=== PATIENT | male | born 1975 | race Caucasian/White ===

== ENCOUNTER 2019-02-04 01:07 | Inpatient (IN) | payer OTHER, MEDICAID ==
[~2019-02-04] VITALS: Ht 165.1 cm; Wt 44.9 kg
[~2019-02-04 01:07] MED LIST: ACET325S31 RC; ALBU3SOL83 IH; ATI2I IVP; CARB100C26 GT; COL100L GT; Cream Base TP; FAMO20TA12 GT; HEPA500056 SUBQ; METO5SOL19 GT; Ondansetron IVP; PIPE1SOL IV; SACC250C1 GT; SYN.075 GT; [UNRECOGNIZED DRUG - CODE] GT; [UNRECOGNIZED DRUG - CODE] GT; [UNRECOGNIZED DRUG - CODE] IVP
[2019-02-04 01:15] VITALS: BP 125/82
--- NOTE | 2019-02-04 01:50 | NUR ---
PTBIBA ALS TO ER BED 3
--- NOTE | 2019-02-04 02:46 | NUR ---
43 Y/O MALE PT BIBA TO ED FOR EVALUATION OF COUGH. PER EMS; PT FROM [facility], STAFFS FOUND PT COUGH, O2 SAT ROOM AIR AT HIGH 80. WHEN EMS ARRIVED, O2 ROOM AIR 93%, PLACED ON O2 2L/M VIA NC O2 SAT 97%. PATIENT IS NONVERBAL AND GCS IS 10. CRACKLES HEARD ON LUNGS BILATERALLY. RR 30; SPO2 IS 96 ON 2L DECUB ULCER TO LT BUTTOCK.ERMD MADE AWARE OF STATUS. PLACED ON MONITOR AND SIDERAILSX2. PMH;PMR, CEREBRAL PALSY, SPASTIC QUAD, SEVERE SCOLIOSIS, GROWTH FAILURE, HYPOTHYROIDISM, CHRONIC CONSTIPATION, ANEMIA, DECUB ULCER TO LT BUTTOCK
--- NOTE | 2019-02-04 03:10 | NUR ---
EKG PERFORMED AT BEDSIDE
[2019-02-04 03:24] LABS: BASOPHILS % (AUTO) 0.2 % (0.0-2.0); EOSINOPHILS % (AUTO) 0.5 % (0.0-4.0); HEMATOCRIT 43.3 % (36-52); HEMOGLOBIN 14.4 g/dL (12.0-18.0); LYMPHOCYTES # (AUTO) 0.6 K/uL (2.0-11.5); LYMPHOCYTES % (AUTO) 11.3 % (20.5-51.1); MEAN CORPUSCULAR HEMOGLOBIN 32 pg (27-31); MEAN CORPUSCULAR HGB CONC 33 g/dL (33-37); MEAN CORPUSCULAR VOLUME 97.3 fL (80-94); MONOCYTES # (AUTO) 0.4 K/uL (0.8-1.0); MONOCYTES % (AUTO) 7.2 % (1.7-9.3); NEUTROPHILS # (AUTO) 4.4 K/uL (1.8-7.7); NEUTROPHILS % (AUTO) 80.8 % (42.2-75.2); PLATELET COUNT (AUTO) 166 K/uL (140-450); RED BLOOD CELL COUNT(AUTO) 4.45 MIL/uL (4.20-6.10); RED CELL DISTRIBUTION WIDTH 12.7 % (11.6-13.7); WHITE BLOOD COUNT (AUTO) 5.4 K/uL (4.8-10.8)
[2019-02-04 03:33] LABS: ANION GAP 10.6 (8-16); CARBON DIOXIDE 29.3 mmol/L (21-32); CREATININE 0.5 mg/dL (0.7-1.3); POTASSIUM 3.9 mmol/L (3.5-5.1)
[2019-02-04 03:39] LABS: ALBUMIN 3.4 g/dL (3.4-5.0); TOTAL BILIRUBIN 0.4 mg/dL (0.0-1.0)
[2019-02-04] MEDS ORDERED: PIPERACILLIN/TAZOBACTAM 3.375 GM in DEXTROSE 5% 50 ML IV ONE (03:50)
[2019-02-04] MEDS ORDERED: VANCOMYCIN 1,000 MG in DEXTROSE 5% 250 ML IV ONE (03:50)
[2019-02-04] MEDS ORDERED: NACL 0.9% 1,000 ML IV ONE ×2 (03:55→04:10)
[2019-02-04] MEDS ORDERED: PIPERACILLIN/TAZOBACTAM 3.375 GM VIAL IV ONE (04:21)
[2019-02-04] MEDS ORDERED: VANCOMYCIN 1,000 MG VIAL ONE (04:24)
[2019-02-04] MEDS ORDERED: ACETAMINOPHEN 650 MG/20.3 ML UDC PO ONE ×2 (05:10→05:50)
[2019-02-04] MEDS ORDERED: ACETAMINOPHEN 325 MG TAB PO ONE (05:55)
[2019-02-04] MEDS ORDERED: ACETAMINOPHEN 650 MG SUPP RC ONE (06:10)
[2019-02-04] MEDS ORDERED: diphenhydrAMINE 50 MG/ML VIAL ONE (06:22)
[2019-02-04] MEDS ORDERED: diphenhydrAMINE 50 MG/ML VIAL IVP ONE (06:25)
--- NOTE | 2019-02-04 07:27 | NUR ---
Pt report given to ALVINO CROOKS. Transfer of care at this time.
--- NOTE | 2019-02-04 07:28 | NUR ---
RECEIVED REPORT FROM ALVINO ECHEVERRIA.
[2019-02-04] MEDS ORDERED: metroNIDAZOLE 500 MG/NS PREMIX 100 ML IV ONE (07:30)
[2019-02-04] MEDS ORDERED: CLINDAMYCIN 600 MG in DEXTROSE 5% 50 ML IV ONE (07:30)
[2019-02-04] MEDS ORDERED: CLINDAMYCIN 600 MG/4 ML VIAL ONE (07:40)
[2019-02-04] MEDS ORDERED: DOCUSATE SODIUM 100 MG GELCAP PO PRN (08:20)
[2019-02-04] MEDS ORDERED: ONDANSETRON 4 MG/2 ML VIAL IM/IVP PRN (08:20)
[2019-02-04] MEDS ORDERED: ACETAMINOPHEN 325 MG TAB PO PRN (08:20)
[2019-02-04] MEDS ORDERED: HYDROcodone/APAP 7.5/325 MG 1 TAB PO PRN (08:20)
[2019-02-04] MEDS ORDERED: ALBUTEROL SULFATE/IPRATROPIU 3 ML SOL IH PRN (08:20)
--- NOTE | 2019-02-04 08:26 | NUR ---
LACTIC BLOOD SAMPLE WALKED TO LAB.
[2019-02-04] MEDS ORDERED: ALBUTEROL SULFATE/IPRATROPIU 3 ML SOL IH SCH ×2 (08:30→13:00)
--- NOTE | 2019-02-04 08:44 | NUR ---
NO ULCERS SEEN ON BUTTOCKS
[2019-02-04] MEDS ORDERED: PANTOPRAZOLE 40 MG TABEC PO SCH (09:00)
--- NOTE | 2019-02-04 09:50 | NUR ---
Patient will be admitted to care of DR. DUNN. Admited to TELE. Will go to room 122B. Belongings list completed. Report to POOJA DE OLIVEIRA.
--- NOTE | 2019-02-04 10:00 | NUR ---
CALLED KIT (PERSON TO NOTIFY) AND ASKED FOR LIST OF HOME MEDS. KIT SAYS SHE WILL CONTACT THE [facility] AND ASK SOMEONE TO PROVIDE LIST TO [facility].
--- NOTE | 2019-02-04 10:02 | NUR ---
RECEIVED REPORT AT BEDSIDE FROM FACING GRINDER, DAKSHA, FOR CONTINUITY OF CARE. PATIENT OPENS EYES TO NAME, NONVERBAL, UNABLE TO MAKE NEEDS KNOWN OR FOLLOW COMMANDS. PATIENT SKIN IS WARM, DRY, INTACT. HE HAS PERIPHERAL IV SITE TO R. HAND 20G, ASYMPTOMATIC AND PATENT. PATIENT IS ON NASAL CANNULA 4LPM. PATEL CATHETER IN PLACE. HOB IS SEMI DAVISON, BED LOCKED IN LOW POSITION. NO SIGNS OF DISTRESS AT THIS TIME. WILL CONTINUE TO MONITOR
[2019-02-04] MEDS: NACL 0.9% 1,000 ML IV SCH ×2 (10:26→17:38)
--- NOTE | 2019-02-04 11:48 | NUR ---
SPOKE WITH DR. MICHAELS REGARDING PATIENT'S DIET, STATES THAT SHE WILL BE TRANSFERRING CARE TO DR. TIFFANY SORIA.
[2019-02-04 12:00] VITALS: BP_SYST 100; BP_SYST 90; BP_DIAS 63; BP_DIAS 70
[2019-02-04] MEDS: PIPERACILLIN/TAZOBACTAM 3.375 GM in DEXTROSE 5% 50 ML IV SCH ×2 (12:20→21:53)
--- NOTE | 2019-02-04 12:47 | NUR ---
ZOSYN RUNNING, NO SIGNS OF REACTION NOTED. WILL CONTINUE TO MONITOR
[2019-02-04] MEDS ORDERED: DOCUSATE 100 MG/10 ML UDC GT PRN (14:25)
[2019-02-04] MEDS ORDERED: ACETAMINOPHEN 325 MG SUPP RC PRN (14:25)
[2019-02-04] MEDS ORDERED: ONDANSETRON 4 MG IVP PRN (14:25)
[2019-02-04] MEDS ORDERED: LORazepam 2 MG/ML VIAL IVP PRN (14:25)
[2019-02-04] MEDS ORDERED: BASE TP PRN (14:25)
--- NOTE | 2019-02-04 14:27 | NUR ---
DR. AVILES IN TO SEE AND EXAMINE PATIENT, UPDATED ON PATIENT'S CONDITION. STATES TO D/C LEVI AND NE.
[2019-02-04] MEDS ORDERED: MORPHINE SULFATE 4 MG/ML SYR IVP PRN (14:30)
[2019-02-04] MEDS ORDERED: MORPHINE SULFATE 2 MG/ML SYR IVP PRN (14:30)
[2019-02-04] MEDS ORDERED: ONDANSETRON 4 MG/2 ML VIAL IVP PRN (14:50)
[2019-02-04 14:51] LABS: PROTHROMBIN TIME 9.8 secs (10.8-13.4)
[2019-02-04 16:00] VITALS: BP 98/69
[2019-02-04 16:03] LABS: FREE T4 (FREE THYROXINE) 0.77 ng/dL (0.76-1.46); MAGNESIUM 1.8 mg/dL (1.8-2.4); PHOSPHORUS 2.9 mg/dL (2.5-4.9); THYROID STIMULATING HORMONE 1.37 uIU/mL (0.34-3.74)
--- NOTE | 2019-02-04 16:15 | NUR ---
PATIENT'S VITALS ARE STABLE, FLACC 0. NO SIGNS OF DISTRESS NOTED.
--- NOTE | 2019-02-04 16:18 | NUR ---
CALLED DR. Kraig SORIA, STATES OK TO CHANGE ORDER FOR CARBAMAZEPINE 500MG GT BID TO 250MG SUSPENSION PO QID.
[2019-02-04] MEDS: METOCLOPRAMIDE 10 MG/10 ML SYRP UDC GT SCH (16:31)
[2019-02-04] MEDS ORDERED: NON-FORMULARY ITEM (Metoclopramide HCl 5 MG) GT SCH (17:00)
--- NOTE | 2019-02-04 17:15 | NUR ---
EMPTIED PATEL, PATIENT HAD 1350 URINE OUTPUT.
[2019-02-04] MEDS: ALBUTEROL SULFATE/IPRATROPIU 3 ML SOL IH SCH ×2 (18:58→22:45)
--- NOTE | 2019-02-04 19:18 | NUR ---
RECEIVED REPORT FROM POOJA DE OLIVEIRA DAYSHIFT NURSE AT BEDSIDE FOR CONTINUITY OF CARE, PT IN STABLE CONDITION.
[2019-02-04 20:00] VITALS: BP 118/82
--- NOTE | 2019-02-04 20:00 | NUR ---
PT IN LOW BED WITH ALL FALLS PRECAUTIONS IN PLACE. HE IS AOX1 WITH NO S/S OF PAIN OR DISTRESS NOTED 02 AT 2 LITERS VIA N/C. PT HAS A PATEL CATHETER INTACT AND DRAINING LIGHT YELLOW URINE. HE ALSO HAS A GT WHICH IS POSITIVE FOR PLACEMENT AND NO RESIDUAL NOTED. V/S FOLLOWS T 97.9 P 103 R 18 B/P 118/82 02 98%WITH 2 LITERS VIA N/C. POSITIVE BOWEL SOUNDS AND LUNG SOUNDS DIMINISHED. IV SITE 20G ON RIGHT WRIST INTACT AND RUNNING NS AT 100MLS/HR.
[2019-02-04] MEDS ORDERED: SACCHAROMYCES BOULARDII GT SCH (21:00)
[2019-02-04] MEDS ORDERED: CARBAMAZEPINE GT SCH (21:00)
--- NOTE | 2019-02-04 21:30 | NUR ---
PT IN BED ALL FALLS AND SEIZURE PRECAUTIONS IN PLACE. PT GIVEN ZOSYN IV ABT HUNG AND RUNNING AT 100MLS/HR. PT ALSO RECEIVED ORDERED TEGRETOL LIQUID VIA GT FOR SEIZURES. PT HAD NO S/S OF SEIZURES THIS SHIFT.
[2019-02-05] VITALS: BP 124/91
--- NOTE | 2019-02-05 | NUR ---
PT IN BED ALL FALLS AND SEIZURE PRECAUTIONS IN PLACE, PT WAS TURNED, CHANGED AND REPOSITIONED IN BED. V/S FOLLOWS T 97.1 P 98 R 18 B/P 124/91 02 99% ON ROOM AIR. IV SITE ON RIGHT WRIST INTACT AND RUNNING N/S AT 100MLS/HR. NO S/S OF PAIN OR DISTRESS NOTED.
[2019-02-05] MEDS ORDERED: BASE TP SCH (01:00)
[2019-02-05] MEDS: ALBUTEROL SULFATE/IPRATROPIU 3 ML SOL IH SCH ×6 (02:51→22:50)
--- NOTE | 2019-02-05 03:15 | NUR ---
PT RECEIVED NEB TREATMENT ORDERED, UNABLE TO OBTAIN SPUTUM SAMPLE.
[2019-02-05 04:00] VITALS: BP 119/78
--- NOTE | 2019-02-05 04:00 | NUR ---
PT IN BED NO S/S OF PAIN OR DISTRESS NOTED, ALL FALLS AND SEIZURES PROTOCOL IN PLACE. V/S FOLLOWS T 97.4 P 90 R 18 B/P 119/78 02 99% ON ROOM AIR.
[2019-02-05] MEDS: NACL 0.9% 1,000 ML IV SCH ×3 (04:17→22:05)
[2019-02-05] MEDS: PIPERACILLIN/TAZOBACTAM 3.375 GM in DEXTROSE 5% 50 ML IV SCH ×3 (04:47→20:44)
[2019-02-05] MEDS: LEVOTHYROXINE 0.075 MG TAB GT SCH (05:56)
--- NOTE | 2019-02-05 07:30 | NUR ---
PLAN OF CARE ENDORSED TO RADHA RN DAYSHIFT NURSE AT BEDSIDE FOR CONTINUITY OF CARE, PT IN STABLE CONDITION.
[2019-02-05 08:00] VITALS: BP 115/83
[2019-02-05] MEDS ORDERED: POTASSIUM CHLORIDE 20% 40 MEQ/15 ML UDC GT SCH (09:00)
[2019-02-05] MEDS ORDERED: NON-FORMULARY ITEM (Potassium Chloride 20 MEQ) GT SCH (09:00)
[2019-02-05] MEDS ORDERED: NON-FORMULARY ITEM (Famotidine 20 MG) GT SCH (09:00)
[2019-02-05 09:10] LABS: T4 (THYROXINE) 5.5 ug/dL (4.5-12.0)
[2019-02-05] MEDS: METOCLOPRAMIDE 10 MG/10 ML SYRP UDC GT SCH ×3 (09:54→17:58)
[2019-02-05] MEDS: FAMOTIDINE 20 MG TAB GT SCH (09:56)
[2019-02-05] MEDS: LACTOBACILLUS RHAMNOSUS GG 1 EACH CAP GT SCH (09:56)
[2019-02-05 12:00] VITALS: BP 120/85
[2019-02-05 12:11] LABS: BASOPHILS % (AUTO) 0.3 % (0.0-2.0); EOSINOPHILS % (AUTO) 0.5 % (0.0-4.0); HEMATOCRIT 40.1 % (36-52); HEMOGLOBIN 13.2 g/dL (12.0-18.0); LYMPHOCYTES # (AUTO) 1.2 K/uL (2.0-11.5); LYMPHOCYTES % (AUTO) 15.7 % (20.5-51.1); MEAN CORPUSCULAR HEMOGLOBIN 33 pg (27-31); MEAN CORPUSCULAR HGB CONC 33 g/dL (33-37); MEAN CORPUSCULAR VOLUME 98.7 fL (80-94); MONOCYTES # (AUTO) 0.4 K/uL (0.8-1.0); MONOCYTES % (AUTO) 5.7 % (1.7-9.3); NEUTROPHILS % (AUTO) 77.8 % (42.2-75.2); PLATELET COUNT (AUTO) 157 K/uL (140-450); RED BLOOD CELL COUNT(AUTO) 4.06 MIL/uL (4.20-6.10); RED CELL DISTRIBUTION WIDTH 12.7 % (11.6-13.7); WHITE BLOOD COUNT (AUTO) 7.7 K/uL (4.8-10.8)
[2019-02-05 12:27] LABS: ANION GAP 14.3 (8-16); CARBON DIOXIDE 25.9 mmol/L (21-32); CREATININE 0.4 mg/dL (0.7-1.3); POTASSIUM 3.2 mmol/L (3.5-5.1)
[2019-02-05 16:00] VITALS: BP 118/79
--- NOTE | 2019-02-05 19:30 | NUR ---
RECEIVED PT IN STABLE CONDITION FROM AM NURSE. PT ON TELE BED. WITH O22L/NC. NO S/S OF ANY DISTRESS NOTED. RT INSIDE ROOM FOR BREATHING TREATMENT. BEDBOUND. IVF INFUSING WELL ON THE RT HAND G#24. CLEAR AND PATENT. PATEL CATHETER DRAINING TO CLEAR A YELLOW URINE. BED ON LOWEST POSITION. SIDE RAILS UP X2. CALL LIGHT PLACED WITHIN REACH BUT NEEDS FREQUENT ROUNDS DUE TO VERY LIMITED MENTAL STATUS. WILL CONTINUE TO MONITOR.
[2019-02-05] MEDS ORDERED: POTASSIUM CHLORIDE 20% 40 MEQ/15 ML UDC ONE (19:54)
[2019-02-05] MEDS ORDERED: POTASSIUM CHLORIDE 10 MEQ TABER PO SCH (20:00)
--- NOTE | 2019-02-05 20:00 | NUR ---
PT STARTED WITH GT FEEDING -BOLUS ., TOLERATED WELL.
[2019-02-05 20:30] VITALS: BP 121/82
--- NOTE | 2019-02-05 22:00 | NUR ---
REPOSITIONED PT FOR COMFORT NO DISTRESS NOTED.
[2019-02-06 00:30] VITALS: BP 128/87
--- NOTE | 2019-02-06 00:30 | NUR ---
WITH OCCASIONAL PRODUCTIVE COUGH. SUCTIONED MOUTH WITH WHITISH SECRETIONS NOTED.
--- NOTE | 2019-02-06 02:00 | NUR ---
MADE ROUNDS . PT ASLEEP. NO DISTRESS NOTED . WILL CONTINUE TO MONITOR.
[2019-02-06] MEDS: ALBUTEROL SULFATE/IPRATROPIU 3 ML SOL IH SCH ×6 (02:50→22:57)
[2019-02-06 04:00] VITALS: BP 119/83
--- NOTE | 2019-02-06 04:00 | NUR ---
PT IS STABLE. NO DISTRESS NOTED AT THIS TIME. WILL CONTINUE TO MONITOR.
[2019-02-06 04:22] LABS: APPEARANCE,URINE CLEAR (CLEAR); BILIRUBIN,URINE NEGATIVE (NEGATIVE); BLOOD, URINE 3+ (NEGATIVE); COLOR,URINE YELLOW (YELLOW); LEUKOCYTE ESTERASE ,URINE TRACE (NEGATIVE); NITRITE, URINE NEGATIVE (NEGATIVE); UGLUCOSE NEGATIVE (NEGATIVE)
[2019-02-06 04:27] LABS: BARBITURATE, URINE NEG. ng/ml (NEG <=200); BENZODIAZEPINE, URINE POS. ng/mL (NEG <=200); CANNABINOID, URINE NEG. ng/mL (NEG <=50); COCAINE, URINE NEG. ng/mL (NEG <=300); OPIATE, URINE NEG. ng/mL (NEG <=2000); PHENCYCLIDINE SCREEN,URINE NEG. ng/mL (NEG <=25)
[2019-02-06] MEDS: PIPERACILLIN/TAZOBACTAM 3.375 GM in DEXTROSE 5% 50 ML IV SCH ×3 (04:59→21:59)
[2019-02-06 05:03] LABS: RBC,URINE 11-20 (MOD) /HPF (0-5); WBC,URINE NONE SEEN /HPF (0-5)
--- NOTE | 2019-02-06 06:00 | NUR ---
CXR DONE AT BEDSIDE. WILL ENDORSE TO AM NURSE TO FOLLOW UP RESULT.
[2019-02-06] MEDS: LEVOTHYROXINE 0.075 MG TAB GT SCH (06:38)
--- NOTE | 2019-02-06 07:25 | NUR ---
ENDORSED PT IN STABLE CONDITION TO AM NURSE FOR CONTINUITY OF CARE.
--- NOTE | 2019-02-06 07:30 | NUR ---
RECEIVED PT FROM PM NURSE. PT HAS O2 NC 2L/MIN. NO S/S OF ANY DISTRESS NOTED. IV SITE CLEAN AND PATENT. PATEL CATHETER DRAINING CLEAR YELLOW URINE. BED ON LOWEST POSITION. SIDE RAILS UP X2. WILL CONTINUE TO MONITOR. NO FEVER.
[2019-02-06 08:00] VITALS: BP 120/86
--- NOTE | 2019-02-06 08:28 | NUR ---
PATIENT HAS BEEN SCREENED AND CATEGORIZED HIGH NUTRITION RISK. PATIENT WILL BE SEEN WITHIN 1-2 DAYS OF ADMISSION. 02/05/19-02/06/[address]
[2019-02-06 08:30] LABS: BASOPHILS % (AUTO) 0.2 % (0.0-2.0); EOSINOPHILS % (AUTO) 0.6 % (0.0-4.0); HEMATOCRIT 36.3 % (36-52); HEMOGLOBIN 12.2 g/dL (12.0-18.0); LYMPHOCYTES # (AUTO) 1.2 K/uL (2.0-11.5); LYMPHOCYTES % (AUTO) 20.3 % (20.5-51.1); MEAN CORPUSCULAR HEMOGLOBIN 33 pg (27-31); MEAN CORPUSCULAR HGB CONC 34 g/dL (33-37); MONOCYTES # (AUTO) 0.6 K/uL (0.8-1.0); MONOCYTES % (AUTO) 9.7 % (1.7-9.3); NEUTROPHILS # (AUTO) 4.1 K/uL (1.8-7.7); NEUTROPHILS % (AUTO) 69.2 % (42.2-75.2); PLATELET COUNT (AUTO) 157 K/uL (140-450); RED CELL DISTRIBUTION WIDTH 12.7 % (11.6-13.7); WHITE BLOOD COUNT (AUTO) 5.9 K/uL (4.8-10.8)
[2019-02-06 08:44] LABS: ANION GAP 10.8 (8-16); CARBON DIOXIDE 29.5 mmol/L (21-32); CREATININE 0.4 mg/dL (0.7-1.3); POTASSIUM 3.3 mmol/L (3.5-5.1)
[2019-02-06] MEDS: METOCLOPRAMIDE 10 MG/10 ML SYRP UDC GT SCH ×3 (09:03→16:35)
[2019-02-06] MEDS: FAMOTIDINE 20 MG TAB GT SCH (09:04)
[2019-02-06] MEDS: LACTOBACILLUS RHAMNOSUS GG 1 EACH CAP GT SCH (09:05)
[2019-02-06] MEDS ORDERED: POTASSIUM CHLORIDE 20% 40 MEQ/15 ML UDC GT SCH (10:00)
--- NOTE | 2019-02-06 10:04 | NUR ---
02/06/19 RD INITIAL ASSESSMENT COMPLETED PLEASE REFER TO NUTRITION ASSESSMENT UNDER CARE ACTIVITY FOR ESTIMATED NUTRITIONAL NEEDS. RD RECOMMENDATIONS: 1. RECOMMEND JEVITY 1.2 @ 55 ML/HR X 24 HR WITH PROSOURCE QD -THIS WILL PROVIDE 1320 ML, 1644, AND 88 GM OF PROTEIN WHICH MEETS 100% OF ESTIMATED NEEDS 2. RECOMMEND FREE WATER FLUSH [address] TO FOLLOW-UP 2-3 DAYS, HIGH RISK MARBELLA WESTFALL, FLOR
[2019-02-06] MEDS: NACL 0.9% 1,000 ML IV SCH (10:19)
--- NOTE | 2019-02-06 10:35 | NUR ---
PAGED DR. ESTELLA Cornell FOR TUBE FEEDING.
[2019-02-06 12:00] VITALS: BP 118/80
--- NOTE | 2019-02-06 13:30 | NUR ---
REPORT GIVEN TO CRISTIAN RN. NOTIFIED ONE 1300 MEDS DID NOT GIVE DUE TO OUT OF STOCK. ALSO NOTIFIED CRISTIAN TO FOLLOW UP WITH TUBE FEEDING.
--- NOTE | 2019-02-06 15:20 | NUR ---
PT RESTING IN BED IN NAD, RESP EVEN UNLABORED, 2L NC O2, OCCASIONAL WET COUGHS, IV PULLED OUT WILL ATTEMPT RESTART.
--- NOTE | 2019-02-06 15:24 | NUR ---
02/06/19 RD INITIAL ASSESSMENT COMPLETED PLEASE REFER TO NUTRITION ASSESSMENT UNDER CARE ACTIVITY FOR ESTIMATED NUTRITIONAL NEEDS. 1. RECOMMEND JEVITY 1.2 @ 55 ML/HR X 24 HR WITH PROSOURCE QD -THIS WILL PROVIDE 1320 ML, 1644, AND 88 GM OF PROTEIN WHICH MEETS 100% OF ESTIMATED NEEDS 2. RECOMMEND FREE WATER FLUSH [address] TO FOLLOW-UP 2-3 DAYS, HIGH RISK MARBELLA WESTF[address] RD
--- NOTE | 2019-02-06 16:00 | NUR ---
PATIENT IS AWAKE, RESPONSIVE TO TACTILE STIMULI. RESPIRATION EVEN AND UNLABORED. NO ACUTE DISTRESS NOTED. CALL LIGHT IN REACH.
[2019-02-06 16:02] VITALS: BP 119/84
--- NOTE | 2019-02-06 16:08 | NUR ---
RAMIREZ attempted to conduct assessment. RAMIREZ contacted Etelvina [phone]. Etelvina was unavailable to be contact. RAMIREZ will follow up with Etelvina to complete assessment. RAMIREZ/KAIDEN will follow up. Addendum: 02/07/19 at 1332 by Laurent DAVENPORT RAMIREZ attempted to conduct assessment. RAMIREZ left voicemail to Etelvina at [phone]. RAMIREZ/KAIDEN will follow up.
--- NOTE | 2019-02-06 18:30 | NUR ---
NEW IV STARTED AFTER MULTIPLE TRY, 22GR WRIST PT MARINA WELL, IVF RESTARTED, SITE WNL, GT FEEDING ORDERED, WILL START WHEN FORMULA ARRIVES.
--- NOTE | 2019-02-06 19:13 | NUR ---
ENDORSED PATIENT IS IN STABLE CONDITION TO GOODYEAR WELTER NURSE.
--- NOTE | 2019-02-06 19:13 | NUR ---
RECIEVED PT AAOX1 , WITH HX OF CEREBRAL PALSY , WITH INTERMITENT SPASTIC MOVEMENT , ON BIT LABORED BREATHING - ON BREATHING TREATMENT - O2 SAT 98% ,RT NOD AT BEDSIDE , ON G TUBE INTACT AND PATENT - SOFT ABD. , WITH FC DRAINING CLEAR U.O , OF SAFETY / FALL PRECAUTION PROTOCOL , CALL LIGHT WITHIN REACH , PLAN OF CARE DISCUSS BUT POOR UNDERSTANDING DUE TO MENTAL STATUS , WITH CURVATURE OF THE EXTREMITIES , ON MONITOR. Addendum: 02/07/19 at 0427 by Ekta Castrejon RN ON O2 AT 2LPM./NC Addendum: 02/07/19 at 0428 by Ekta Castrejon RN ON O2 AT 2LPM/NC
--- NOTE | 2019-02-06 19:17 | NUR ---
SPUTUM SAMPLE WAS UPTAINED AND SENT TO LAB
[2019-02-06 20:00] VITALS: BP 130/82
--- NOTE | 2019-02-06 22:00 | NUR ---
MADE ROUNDS , RR2O , 02 SAT 98 - WILL CONT. TO MONITOR.
[2019-02-07] VITALS: BP 130/80
[2019-02-07] MEDS: NACL 0.9% 1,000 ML IV SCH ×4 (00:17→15:17)
[2019-02-07] MEDS: ALBUTEROL SULFATE/IPRATROPIU 3 ML SOL IH SCH ×5 (03:10→19:05)
[2019-02-07 04:00] VITALS: BP 140/80
[2019-02-07] MEDS: PIPERACILLIN/TAZOBACTAM 3.375 GM in DEXTROSE 5% 50 ML IV SCH ×3 (06:21→21:39)
[2019-02-07] MEDS: LEVOTHYROXINE 0.075 MG TAB GT SCH (06:28)
--- NOTE | 2019-02-07 07:18 | NUR ---
RECEIVED PT IN STABLE CONDITION FROM NIGHT NURSE. AAO X1. RESPIRATIONS EVEN AND UNLABORED WITH APPROPRIATE O2 SAT. SKIN INTACT. IV IN PLACE AND INFUSING PER ORDER IN R HAND. BED IN LOW POSITION, SAFETY MEASURES IN PLACE. CALL LIGHT WITHIN REACH. WILL CONTINUE TO MONITOR.
[2019-02-07 07:45] LABS: BASOPHILS % (AUTO) 0.6 % (0.0-2.0); EOSINOPHILS % (AUTO) 0.8 % (0.0-4.0); HEMATOCRIT 38.9 % (36-52); HEMOGLOBIN 12.8 g/dL (12.0-18.0); LYMPHOCYTES # (AUTO) 1.2 K/uL (2.0-11.5); MEAN CORPUSCULAR HEMOGLOBIN 32 pg (27-31); MEAN CORPUSCULAR HGB CONC 33 g/dL (33-37); MONOCYTES # (AUTO) 0.4 K/uL (0.8-1.0); MONOCYTES % (AUTO) 8.8 % (1.7-9.3); NEUTROPHILS # (AUTO) 3.4 K/uL (1.8-7.7); NEUTROPHILS % (AUTO) 65.8 % (42.2-75.2); PLATELET COUNT (AUTO) 169 K/uL (140-450); RED BLOOD CELL COUNT(AUTO) 3.97 MIL/uL (4.20-6.10); RED CELL DISTRIBUTION WIDTH 12.9 % (11.6-13.7); WHITE BLOOD COUNT (AUTO) 5.1 K/uL (4.8-10.8)
[2019-02-07 08:00] VITALS: BP 136/101
[2019-02-07 08:02] LABS: ANION GAP 13.3 (8-16); CARBON DIOXIDE 29.1 mmol/L (21-32); CREATININE 0.5 mg/dL (0.7-1.3); POTASSIUM 3.4 mmol/L (3.5-5.1)
--- NOTE | 2019-02-07 10:00 | NUR ---
MEDICATIONS ADMINISTERED PER ORDER. PT TOLERATED WELL AND DOES NOT SHOW SIGNS OF DISTRESS. GT RESIDUALS 0ML. SAFETY MEASURES IN PLACE. WILL CONTINUE TO MONITOR.
[2019-02-07] MEDS: FAMOTIDINE 20 MG TAB GT SCH (10:08)
[2019-02-07] MEDS: LACTOBACILLUS RHAMNOSUS GG 1 EACH CAP GT SCH (10:08)
[2019-02-07] MEDS: METOCLOPRAMIDE 10 MG/10 ML SYRP UDC GT SCH ×3 (10:08→16:05)
[2019-02-07 12:00] VITALS: BP 124/95
--- NOTE | 2019-02-07 12:15 | NUR ---
MEDICATIONS ADMINISTERED PER ORDER. TOLERATED WELL, NO SIGNS OF DISTRESS. SAFETY MEASURES IN PLACE. WILL CONTINUE TO MONITOR.
[2019-02-07] MEDS ORDERED: POTASSIUM CHLORIDE 20% 40 MEQ/15 ML UDC GT SCH (13:00)
--- NOTE | 2019-02-07 13:05 | NUR ---
ADMINISTERED MEDICATION PER ORDER. PT STABLE. NO DISTRESS NOTED. SAFETY MEASURES IN PLACE. WILL CONTINUE TO MONITOR.
--- NOTE | 2019-02-07 16:20 | NUR ---
MEDICATIONS ADMINISTERED PER ORDER. NO DISTRESS NOTED. WILL CONTINUE TO MONITOR
--- NOTE | 2019-02-07 19:15 | NUR ---
RECEIVED PATIENT ON 2L NASAL CANNULA, PULSE OX SAT 98%. SCHEDULES BREATHING TREATMENT ADMINISTERED. TOLERATED TX WELL WITHOUT ADVERSE SIDE EFFECTS. NO ACUTE RESPIRATORY DISTRESS NOTED AT THIS TIME. WILL CONTINUE TO MONITOR.
--- NOTE | 2019-02-07 19:20 | NUR ---
PT GIVEN TO NIGHT NURSE IN STABLE CONDITION FOR CONTINUITY OF CARE.
--- NOTE | 2019-02-07 19:21 | NUR ---
Received endorsement from AM shift RN; patient A/Ox1 due to intellectual disability. Introduced self, updated board. No SOB or distress noted, on O2 2LPM via nasal cannula. IV site on right hand, 24 gauge, running IVF at 100mL/hr. G-tube in place. Godwin in place. Skin intact. Bed in the lowest position, call light within reach. Initial assessment done. Will continue to monitor.
--- NOTE | 2019-02-07 20:57 | NUR ---
NASOTRACHEAL SUCTIONED PATIENT THROUGH BOTH NARES WITH SMALL AMOUNT OF BLEEDING DURING PROCEDURE. OBTAINED SPUTUM SAMPLE AND SENT TO LAB. RN NOTIFIED. NARES CLEANED. NEW NASAL CANNULA APPLIED. NO CHANGE IN VITALS. NO ACUTE DISTRESS NOTED. WILL CONTINUE TO MONITOR.
--- NOTE | 2019-02-07 21:59 | NUR ---
Due meds given, tolerated well. 0mL residual noted in g-tube.
--- NOTE | 2019-02-07 23:43 | NUR ---
Vitals taken, no SOB or distress noted.
[2019-02-08] VITALS: BP 129/87
[2019-02-08] MEDS: ALBUTEROL SULFATE/IPRATROPIU 3 ML SOL IH SCH ×5 (00:21→15:36)
--- NOTE | 2019-02-08 00:30 | NUR ---
SCHEDULED BREATHING TREATMENT ADMINISTERED. TOLERATED TX WELL WITHOUT ADVERSE SIDE EFFECTS. NO ACUTE RESPIRATORY DISTRESS NOTED AT THIS TIME. WILL CONTINUE TO MONITOR.
--- NOTE | 2019-02-08 00:35 | NUR ---
Vitals taken, no distress noted.
[2019-02-08] MEDS: NACL 0.9% 1,000 ML IV SCH ×2 (01:17→12:17)
--- NOTE | 2019-02-08 02:50 | NUR ---
Rounds done; patient resting comfortably, no distress noted.
[2019-02-08] MEDS: PIPERACILLIN/TAZOBACTAM 3.375 GM in DEXTROSE 5% 50 ML IV SCH ×2 (04:15→13:29)
--- NOTE | 2019-02-08 04:58 | NUR ---
Checks made; patent awake, no distress noted.
[2019-02-08] MEDS: LEVOTHYROXINE 0.075 MG TAB GT SCH (06:37)
--- NOTE | 2019-02-08 06:40 | NUR ---
Vitals stable, due meds given. Will endorse to AM shift RN for continuity of care.
--- NOTE | 2019-02-08 07:31 | NUR ---
RECEIVED BEDSIDE REPORT FROM RN PLACEMENT RN. PT IS AAOX1 TO NAME. PT HAS INTELLECTUAL DELAY. PT SKIN IS INTACT. PT HAS IV IN THE RIGHT HAND 22G INFUSING NS AT 100ML/HR. PT HAS PATEL CATHETER DRAINING WELL. PT ALSO HAS G-TUBE RUNNING JEVITY 1.2 AT 55ML/HR. PT TOLERATING WELL. PT UNABLE TO VERBALIZE UNDERSTANDING OF TEACHING AND POC. WILL ROUND FREQUENTLY ON PT. BED IN LOW POSITION, CALL LIGHT WITHIN REACH.
[2019-02-08 07:49] LABS: ANION GAP 10.3 (8-16); CARBON DIOXIDE 30.4 mmol/L (21-32); CREATININE 0.4 mg/dL (0.7-1.3); POTASSIUM 3.7 mmol/L (3.5-5.1)
[2019-02-08 07:51] LABS: BASOPHILS % (AUTO) 0.7 % (0.0-2.0); EOSINOPHILS # (AUTO) 0.1 K/uL (0-0.4); EOSINOPHILS % (AUTO) 1.2 % (0.0-4.0); HEMATOCRIT 38.3 % (36-52); HEMOGLOBIN 12.7 g/dL (12.0-18.0); LYMPHOCYTES # (AUTO) 1.1 K/uL (2.0-11.5); LYMPHOCYTES % (AUTO) 24.4 % (20.5-51.1); MEAN CORPUSCULAR HEMOGLOBIN 32 pg (27-31); MEAN CORPUSCULAR HGB CONC 33 g/dL (33-37); MEAN CORPUSCULAR VOLUME 97.9 fL (80-94); MONOCYTES # (AUTO) 0.6 K/uL (0.8-1.0); MONOCYTES % (AUTO) 12.2 % (1.7-9.3); NEUTROPHILS # (AUTO) 2.8 K/uL (1.8-7.7); NEUTROPHILS % (AUTO) 61.5 % (42.2-75.2); PLATELET COUNT (AUTO) 187 K/uL (140-450); RED BLOOD CELL COUNT(AUTO) 3.91 MIL/uL (4.20-6.10); RED CELL DISTRIBUTION WIDTH 12.8 % (11.6-13.7); WHITE BLOOD COUNT (AUTO) 4.5 K/uL (4.8-10.8)
[2019-02-08 08:25] VITALS: BP 106/85
--- NOTE | 2019-02-08 09:47 | NUR ---
ADMINISTERED MORNING MEDS TO PT. PT TOLERATED WELL. CHECKED RESIDUALS BEFORE MED ADMINISTRATION. 40ML RESIDUAL TOTAL. PT TOLERATING FEEDING WELL. FLACC-0. NO SIGNS OF DISTRESS. O2 RUNNING AT 2L WITH O2 SAT AT 96%. WILL CONTINUE TO ROUND FREQUENTLY ON TP. BED IN LOW POSITION, CALL LIGHT WITHIN REACH.
[2019-02-08] MEDS: FAMOTIDINE 20 MG TAB GT SCH (10:21)
[2019-02-08] MEDS: LACTOBACILLUS RHAMNOSUS GG 1 EACH CAP GT SCH (10:21)
[2019-02-08] MEDS: METOCLOPRAMIDE 10 MG/10 ML SYRP UDC GT SCH ×2 (10:21→13:42)
--- NOTE | 2019-02-08 11:37 | NUR ---
SLEEPING. NO SIGNS OF DISTRESS OR PAIN. WILL CONTINUE TO ROUND FREQUENTLY ON PT. BED IN LOW POSITION, CALL LIGHT WITHIN REACH.
--- NOTE | 2019-02-08 12:50 | NUR ---
SCREEN FOR LOW OSCAR SCALE AT RISK, CONTINUE TO FOLLOW PRESSURE ULCER PREVENTION INTERVENTIONS. -TURN AND REPOSITION PATIENT Q 2H -ASSESS AND MONITOR SKIN CONDITION DURING POSITION CHANGE -OFFLOAD BILATERAL HEELS BY PLACING PILLOWS UNDER CALVES AT ALL TIMES, UNLESS OTHERWISE CONTRAINDICATED -PRESSURE REDISTRIBUTION BY PLACING PILLOWS AND OFFLOADING SACRALCOCCYX -KEEP SKIN CLEAN AND DRY AT ALL TIMES.
--- NOTE | 2019-02-08 13:32 | NUR ---
02/08/19 RD FOLLOW UP COMPLETED PLEASE REFER TO NUTRITION ASSESSMENT UNDER CARE ACTIVITY FOR ESTIMATED NUTRITIONAL NEEDS. 1. CONTINUE JEVITY 1.2 @ 55 ML/HR -THIS PROVIDES 1320 ML OF VOLUME, 1584 KCAL AND 73 GM OF PROTEIN WHICH MEETS 96% OF ESTIMATED KCAL NEEDS AND 100% OF ESTIMATED PROTEIN NEEDS 2. RD TO FOLLOW-UP 2-3 DAYS, HIGH RISK MARBELLA WESTFALL, RD
--- NOTE | 2019-02-08 13:40 | NUR ---
PT RESTING IN BED. TV IS ON FOR HIM. NO SIGNS OF PAIN OR DISTRESS. WILL CONTINUE TO ROUND FREQUENTLY ON PT. BED IN LOW POSITION, CALL LIGHT WITHIN REACH.
--- NOTE | 2019-02-08 15:50 | NUR ---
PT SLEEPING. WILL CONTINUE TO ROUND FREQUENTLY ON PT.
--- NOTE | 2019-02-08 16:35 | NUR ---
CONTACTED [facility], SPOKE WITH IRWIN REGARDING THE PT'S DISCHARGE BACK TO [facility]. IRWIN STATED THEIR SPINNING AND WINDING SUPERVISOR WILL BE HERE AROUND 5 PM TO DECISION ANALYST THE PT. DIPESH ASSIGNED MADE AWARE.
--- NOTE | 2019-02-08 17:57 | NUR ---
PT DISCHARGED BACK TO [facility]. PT DISCHARGE FORMS SIGNED BY CLINICAL RESEARCH TECH. ALL PERSONAL BELONGINGS TAKEN WITH PT. PT IV REMOVED WITH TIP INTACT. PT PATEL REMOVED PER MD ORDERS. INSTRUCTIONS GIVEN TO CLINICAL RESEARCH TECH TO CALL FOR PRESCRIPTION FOR ABX THERAPY TO BE SENT TO [facility]. CLINICAL RESEARCH TECH VERBALIZED UNDERSTANDING. PT LEFT IN STABLE CONDITION.
== END 2019-02-08 18:00 | DRG 871 ==
LOC: MED 01:07 → MTU 07:15
PROVIDERS: ADMIT Preventive Medicine Preventive Medicine/Occupational Environmental Medicine; ATTEND Preventive Medicine Preventive Medicine/Occupational Environmental Medicine
DX: A41.9 Sepsis, unspecified organism (principal); G82.50 Quadriplegia, unspecified; G93.41 Metabolic encephalopathy; J96.01 Acute respiratory failure with hypoxia; J69.0 Pneumonitis due to inhalation of food and vomit; N39.0 Urinary tract infection, site not specified; R13.11 Dysphagia, oral phase; E03.9 Hypothyroidism, unspecified; G40.909 Epilepsy, unspecified, not intractable, without status epilepticus; K21.9 Gastro-esophageal reflux disease without esophagitis; M41.9 Scoliosis, unspecified; E87.5 Hyperkalemia; R73.9 Hyperglycemia, unspecified; I11.0 Hypertensive heart disease with heart failure; I50.9 Heart failure, unspecified; J45.909 Unspecified asthma, uncomplicated; M19.90 Unspecified osteoarthritis, unspecified site; Z87.891 Personal history of nicotine dependence; Z93.1 Gastrostomy status; Z88.8 Allergy status to other drugs, medicaments and biological substances
CPT/HCPCS: 36415; 71045; 80048; 80053; 80305; 81001; 82140; 82150; 83036; 83605; 83690; 83735; 83880; 84100; 84436; 84439; 84443; 84479; 84484; 85025; 85610; 85651; 85730; 86140; 87040; 87070; 87081; 87086; 87205; 89220; 93005; 94640; 96361; 96365; 96367; 96375; 99285; J1200; J2543; J3370; J3490; J7030; J7060; J7620; J8597; Q0092

== ENCOUNTER 2023-01-12 16:55 | Inpatient (IN) | payer OTHER, MEDICAID ==
[~2023-01-12] VITALS: Ht 137.2 cm; Wt 47.2 kg
[~2023-01-12 16:55] MED LIST changes: -ATI2I IVP; -COL100L GT; -Cream Base TP; +DOCU50LI8 GT; -HEPA500056 SUBQ; -Ondansetron IVP; -PIPE1SOL IV; -[UNRECOGNIZED DRUG - CODE] GT; -[UNRECOGNIZED DRUG - CODE] GT; -[UNRECOGNIZED DRUG - CODE] IVP
[2023-01-12 17:11] VITALS: BP 133/77; PULSE 122; RESP 38; TEMP 97.7; O2SAT 92
[2023-01-12] MEDS ORDERED: CEFEPIME 2,000 MG in DEXTROSE 5% 100 ML IV ONE (17:20)
[2023-01-12 17:48] LABS: BASOPHILS % (AUTO) 0.4 % (0.0-2.0); EOSINOPHILS % (AUTO) 0.2 % (0.0-4.0); HEMATOCRIT 40.6 % (36-52); HEMOGLOBIN 13.6 g/dL (12.0-18.0); LYMPHOCYTES # (AUTO) 0.9 K/uL (2.0-11.5); LYMPHOCYTES % (AUTO) 8.1 % (20.5-51.1); MEAN CORPUSCULAR HEMOGLOBIN 31 pg (27-31); MEAN CORPUSCULAR HGB CONC 33 g/dL (33-37); MEAN CORPUSCULAR VOLUME 92.1 fL (80-94); MONOCYTES % (AUTO) 18.1 % (1.7-9.3); NEUTROPHILS # (AUTO) 8.3 K/uL (1.8-7.7); NEUTROPHILS % (AUTO) 73.2 % (42.2-75.2); PLATELET COUNT (AUTO) 377 K/uL (140-450); RED BLOOD CELL COUNT(AUTO) 4.41 MIL/uL (4.20-6.10); WHITE BLOOD COUNT (AUTO) 11.3 K/uL (4.8-10.8)
[2023-01-12 18:04] LABS: ALBUMIN 2.6 g/dL (3.4-5.0); ANION GAP 13.9 (8-16); CARBON DIOXIDE 25.9 mmol/L (21-32); CREATININE 0.5 mg/dL (0.6-1.3); POTASSIUM 4.8 mmol/L (3.5-5.1); TOTAL BILIRUBIN 0.2 mg/dL (0.0-1.0); TOTAL PROTEIN, SERUM 7.7 g/dL (6.4-8.2)
[2023-01-12 18:06] LABS: LACTIC ACID 1.9 mmol/L (0.4-2.0)
[2023-01-12 18:07] LABS: PARTIAL THROMBOPLASTIN TIME 31.1 secs (22-35.6); PROTHROMBIN TIME 10.5 secs (10.8-13.4)
[2023-01-12 18:11] LABS: BLOOD GAS BASE EXCESS 1.3 mmol/L (-2.0-2.0); BLOOD GAS HCO3 24.8 mmol/L (22-26); BLOOD GAS PCO2 35.7 mmHg (35-45); BLOOD GAS PH 7.459 (7.35-7.45); BLOOD GAS PO2 99.1 mmHg (75-100)
[2023-01-12 18:11] LABS: CREATINE KINASE, TOTAL 32 U/L (39-308)
[2023-01-12] MEDS ORDERED: CEFEPIME 2,000 MG VIAL IV ONE (18:28)
[2023-01-12] MEDS ORDERED: MORPHINE SULFATE 4 MG/ML SYR IVP PRN (19:35)
[2023-01-12] MEDS ORDERED: ACETAMINOPHEN 325 MG TAB PO PRN (19:35)
[2023-01-12] MEDS ORDERED: MORPHINE SULFATE 2 MG/ML SYR IVP PRN (19:35)
[2023-01-12] MEDS ORDERED: ONDANSETRON 4 MG/2 ML VIAL IVP PRN (19:35)
[2023-01-12] MEDS ORDERED: MELO-174 PO (20:54)
[2023-01-12] MEDS ORDERED: PUL.5N NEB (20:54)
[2023-01-12] MEDS ORDERED: MONT-72 PO (20:54)
[2023-01-12] MEDS ORDERED: CHLO4TAB PO (20:54)
[2023-01-12] MEDS ORDERED: SYN.075 PO (20:54)
[2023-01-12] MEDS ORDERED: BACL20TA4 PO (20:54)
[2023-01-12 21:00] VITALS: BP 131/79; PULSE 103; PULSE 112; RESP 20; TEMP 99.8; O2SAT 98
[2023-01-12] MEDS ORDERED: NACL 0.9% 1,000 ML IV ONE (21:00)
[2023-01-12] MEDS ORDERED: PIPERACILLIN/TAZOBACTAM 2.25 GM VIAL IV ONE (21:28)
[2023-01-12] MEDS: PIPERACILLIN/TAZOBACTAM 2.25 GM in DEXTROSE 5% 50 ML IV SCH (21:36)
[2023-01-13] VITALS (11 sets, daily range): BP systolic 125–137; BP diastolic 68–88; PULSE 63–125; RESP 16–28; TEMP 97.1–98.4; O2SAT 96–100
[2023-01-13] MEDS ORDERED: PIPERACILLIN/TAZOBACTAM 2.25 GM VIAL IV ONE (04:49)
[2023-01-13] MEDS: PIPERACILLIN/TAZOBACTAM 2.25 GM in DEXTROSE 5% 50 ML IV SCH ×3 (04:56→21:42)
[2023-01-13] MEDS: ALBUTEROL 0.083% 2.5 MG/3 ML NEBU INH PRN ×2 (05:20→13:41)
[2023-01-13 05:37] LABS: BASOPHILS # (AUTO) 0.1 K/uL (0.00-0.22); BASOPHILS % (AUTO) 0.5 % (0.0-2.0); EOSINOPHILS % (AUTO) 0.4 % (0.0-4.0); HEMATOCRIT 36.7 % (36-52); LYMPHOCYTES # (AUTO) 1.6 K/uL (2.0-11.5); LYMPHOCYTES % (AUTO) 15.2 % (20.5-51.1); MEAN CORPUSCULAR HEMOGLOBIN 31 pg (27-31); MEAN CORPUSCULAR HGB CONC 33 g/dL (33-37); MEAN CORPUSCULAR VOLUME 93.5 fL (80-94); MONOCYTES # (AUTO) 1.8 K/uL (0.8-1.0); MONOCYTES % (AUTO) 16.5 % (1.7-9.3); NEUTROPHILS # (AUTO) 7.3 K/uL (1.8-7.7); NEUTROPHILS % (AUTO) 67.4 % (42.2-75.2); PLATELET COUNT (AUTO) 320 K/uL (140-450); RED BLOOD CELL COUNT(AUTO) 3.93 MIL/uL (4.20-6.10); RED CELL DISTRIBUTION WIDTH 12.6 % (11.6-13.7); WHITE BLOOD COUNT (AUTO) 10.8 K/uL (4.8-10.8)
[2023-01-13 06:02] LABS: ALBUMIN 2.2 g/dL (3.4-5.0); ANION GAP 9.8 (8-16); CALCIUM 8.4 mg/dL (8.5-10.1); CARBON DIOXIDE 29.3 mmol/L (21-32); CREATININE 0.5 mg/dL (0.6-1.3); POTASSIUM 4.1 mmol/L (3.5-5.1); TOTAL BILIRUBIN 0.3 mg/dL (0.0-1.0); TOTAL PROTEIN, SERUM 6.7 g/dL (6.4-8.2)
[2023-01-13 20:18] LABS: APPEARANCE,SPUN,BODY FLUID CLEAR (CLEAR); APPEARANCE,UNSPUN,BODY FLUID CLEAR (CLEAR); COLOR,BODY FLUID LT YELLOW (LT YELLOW)
[2023-01-13 20:19] LABS: GLUCOSE,BODY FLUID 114 mg/dL
[2023-01-13 20:23] LABS: SPECIMENTYPE,BODY FLUID THORACENTESIS; TOTAL VOLUME,BODY FLUID 1500 mL
[2023-01-13 20:28] LABS: PROTEIN, BODY FLUID 4.8 g/dL
[2023-01-13 20:38] LABS: RBC, BODY FLUID 63 /cu. mm.; WBC, BODY FLUID 135 /cu. mm.
[2023-01-13 22:11] LABS: POLYNUCLEAR, BODY FLUID 76 %
[2023-01-14] VITALS (10 sets, daily range): BP systolic 112–128; BP diastolic 58–87; PULSE 108–126; RESP 18–20; TEMP 97.5–98.7; O2SAT 94–98
[2023-01-14] MEDS: PIPERACILLIN/TAZOBACTAM 2.25 GM in DEXTROSE 5% 50 ML IV SCH ×3 (05:03→20:01)
[2023-01-14 09:06] LABS: LACTATE DEHYDROGENASE 158 IU/L (121-224)
[2023-01-14 18:51] LABS: APPEARANCE,URINE CLEAR (CLEAR); BILIRUBIN,URINE NEGATIVE (NEGATIVE); BLOOD, URINE NEGATIVE (NEGATIVE); COLOR,URINE YELLOW (YELLOW); LEUKOCYTE ESTERASE ,URINE 1+ (NEGATIVE); NITRITE, URINE NEGATIVE (NEGATIVE); PH,URINE 6.5 (5.0-9.0); PROTEIN,URINE TRACE (NEGATIVE); UGLUCOSE NEGATIVE (NEGATIVE); UROBILINOGEN,URINE 0.2 EU/dL (0.2 - 1)
[2023-01-15] VITALS (7 sets, daily range): BP systolic 102–126; BP diastolic 47–80; PULSE 100–118; RESP 16–20; TEMP 96.6–97.6; O2SAT 91–97
[2023-01-15] MEDS: PIPERACILLIN/TAZOBACTAM 2.25 GM in DEXTROSE 5% 50 ML IV SCH ×2 (04:39→13:07)
[2023-01-15] MEDS ORDERED: AMOX-999 PO (10:06)
[2023-01-19 06:08] LABS: LD1 FRACTION 19 % (17-32); LD2 FRACTION 30 % (25-40); LD3 FRACTION 25 % (17-27); LD4 FRACTION 11 % (5-13); LD5 FRACTION 15 % (4-20)
== END 2023-01-15 15:40 | DRG 871 ==
LOC: MED 16:55 → MTU 19:40
PROVIDERS: ADMIT Student in an Organized Health Care Education/Training Program; ATTEND Student in an Organized Health Care Education/Training Program
PROC: 0W9B3ZZ Drainage of Left Pleural Cavity, Percutaneous Approach (ICD-10-PCS; principal; 2023-01-13)
DX: A41.9 Sepsis, unspecified organism (principal); G82.50 Quadriplegia, unspecified; J96.01 Acute respiratory failure with hypoxia; J18.9 Pneumonia, unspecified organism; J90 Pleural effusion, not elsewhere classified; J45.901 Unspecified asthma with (acute) exacerbation; R13.10 Dysphagia, unspecified; G40.909 Epilepsy, unspecified, not intractable, without status epilepticus; F79 Unspecified intellectual disabilities; K21.9 Gastro-esophageal reflux disease without esophagitis; Z93.1 Gastrostomy status; Z88.8 Allergy status to other drugs, medicaments and biological substances; Z79.899 Other long term (current) drug therapy
CPT/HCPCS: 36415; 36600; 71045; 71250; 74018; 76604; 76942; 80053; 81001; 82550; 82553; 82803; 82945; 83605; 83625; 83880; 84157; 84484; 85025; 85610; 85730; 87040; 87070; 87075; 87081; 87086; 87205; 89051; 94640; 96365; 99291; J0692; J2001; J2543; J7060; J7613; Q0092

== ENCOUNTER 2023-01-28 14:49 | Inpatient (IN) | payer OTHER, MEDICAID ==
[~2023-01-28] VITALS: Ht 137.2 cm; Wt 37.2 kg
[~2023-01-28 14:49] MED LIST changes: +AMOX-999 PO; +BACL20TA4 PO; +CHLO4TAB PO; +MELO-174 PO; +MONT-72 PO; +PUL.5N NEB; +SYN.075 PO
[2023-01-28 14:51] VITALS: BP 106/67; PULSE 5; RESP 17; TEMP 97.3; O2SAT 97
[2023-01-28 16:01] LABS: BASOPHILS # (AUTO) 0.1 K/uL (0.00-0.22); BASOPHILS % (AUTO) 0.6 % (0.0-2.0); EOSINOPHILS % (AUTO) 0.5 % (0.0-4.0); HEMATOCRIT 35.3 % (36-52); HEMOGLOBIN 11.6 g/dL (12.0-18.0); LYMPHOCYTES # (AUTO) 1.5 K/uL (2.0-11.5); MEAN CORPUSCULAR HEMOGLOBIN 30 pg (27-31); MEAN CORPUSCULAR HGB CONC 33 g/dL (33-37); MONOCYTES % (AUTO) 9.7 % (1.7-9.3); NEUTROPHILS # (AUTO) 7.3 K/uL (1.8-7.7); NEUTROPHILS % (AUTO) 74.2 % (42.2-75.2); PLATELET COUNT (AUTO) 471 K/uL (140-450); RED BLOOD CELL COUNT(AUTO) 3.92 MIL/uL (4.20-6.10); RED CELL DISTRIBUTION WIDTH 13.8 % (11.6-13.7); WHITE BLOOD COUNT (AUTO) 9.9 K/uL (4.8-10.8)
[2023-01-28 16:19] LABS: ALBUMIN 2.3 g/dL (3.4-5.0); ANION GAP 13.2 (8-16); CALCIUM 9.5 mg/dL (8.5-10.1); CARBON DIOXIDE 28.5 mmol/L (21-32); CREATININE 0.4 mg/dL (0.6-1.3); POTASSIUM 4.7 mmol/L (3.5-5.1); TOTAL BILIRUBIN 0.3 mg/dL (0.0-1.0)
[2023-01-28] MEDS ORDERED: MORPHINE SULFATE 4 MG/ML SYR IVP ONE (17:05)
[2023-01-28] MEDS ORDERED: DOCUSATE SODIUM 100 MG GELCAP PO PRN (17:10)
[2023-01-28] MEDS ORDERED: NACL 0.9% 1,000 ML IV SCH (17:10)
[2023-01-28] MEDS ORDERED: POTASSIUM CHLORIDE 10 MEQ TABER PO PRN (17:10)
[2023-01-28] MEDS ORDERED: ZOLPIDEM 10 MG TAB PO PRN (17:10)
[2023-01-28] MEDS ORDERED: cefTRIAXone 1,000 MG VIAL ONE (17:11)
[2023-01-28] MEDS ORDERED: FUROSEMIDE 40 MG/4 ML VIAL IVP ONE (17:15)
[2023-01-28] MEDS ORDERED: AZITHROMYCIN 250 MG TAB PO ONE (17:15)
[2023-01-28 19:30] VITALS: PULSE 104; RESP 19; O2SAT 98
[2023-01-28 20:00] VITALS: BP 116/78; PULSE 104; RESP 19; TEMP 97.8; O2SAT 98
[2023-01-28] MEDS ORDERED: AZITHROMYCIN 250 MG TAB ONE (21:42)
[2023-01-28] MEDS: DEXT 5% / NACL 0.45% 1,000 ML IV SCH (22:22)
[2023-01-29] VITALS (21 sets, daily range): BP systolic 93–131; BP diastolic 65–80; PULSE 92–122; RESP 12–26; TEMP 96.1–97.8; O2SAT 91–100
[2023-01-29] MEDS: MORPHINE SULFATE 2 MG/ML SYR IVP PRN (04:32)
[2023-01-29 05:31] LABS: ANION GAP 7.6 (8-16); CALCIUM 9.1 mg/dL (8.5-10.1); CARBON DIOXIDE 31.6 mmol/L (21-32); CREATININE 0.3 mg/dL (0.6-1.3); POTASSIUM 3.2 mmol/L (3.5-5.1)
[2023-01-29 05:32] LABS: BASOPHILS # (AUTO) 0.1 K/uL (0.00-0.22); BASOPHILS % (AUTO) 0.6 % (0.0-2.0); EOSINOPHILS % (AUTO) 0.5 % (0.0-4.0); HEMATOCRIT 33.3 % (36-52); LYMPHOCYTES # (AUTO) 1.4 K/uL (2.0-11.5); LYMPHOCYTES % (AUTO) 14.6 % (20.5-51.1); MEAN CORPUSCULAR HEMOGLOBIN 30 pg (27-31); MEAN CORPUSCULAR HGB CONC 33 g/dL (33-37); MEAN CORPUSCULAR VOLUME 89.8 fL (80-94); MONOCYTES # (AUTO) 1.1 K/uL (0.8-1.0); MONOCYTES % (AUTO) 10.7 % (1.7-9.3); NEUTROPHILS # (AUTO) 7.2 K/uL (1.8-7.7); NEUTROPHILS % (AUTO) 73.6 % (42.2-75.2); PLATELET COUNT (AUTO) 433 K/uL (140-450); RED BLOOD CELL COUNT(AUTO) 3.71 MIL/uL (4.20-6.10); RED CELL DISTRIBUTION WIDTH 13.5 % (11.6-13.7); WHITE BLOOD COUNT (AUTO) 9.8 K/uL (4.8-10.8)
[2023-01-29 05:35] LABS: INR 1.18 (0.8-1.2); PROTHROMBIN TIME 12.3 secs (10.8-13.4)
[2023-01-29] MEDS: LEVOTHYROXINE 0.075 MG TAB GT SCH (06:34)
[2023-01-29] MEDS ORDERED: POTASSIUM CHLORIDE 40 MEQ, LIDOCAINE 1% 25 MG in NACL 0.9% 250 ML IV ONE ×2 (08:30→09:00)
[2023-01-29] MEDS: ALBUTEROL SULFATE/IPRATROPIU 3 ML SOL IH PRN (08:39)
[2023-01-29] MEDS: BUDESONIDE 0.5 MG/2 ML NEBU INH SCH ×2 (08:46→19:00)
[2023-01-29] MEDS: BACLOFEN 10 MG TAB PO SCH ×3 (08:48→20:59)
[2023-01-29] MEDS: AZITHROMYCIN 250 MG TAB PO SCH (08:48)
[2023-01-29] MEDS: MONTELUKAST SODIUM 10 MG TAB PO SCH (08:48)
[2023-01-29] MEDS: ACETAMINOPHEN 325 MG TAB PO PRN (09:12)
[2023-01-29] MEDS ORDERED: SEVOFLURANE 250 ML BTL INH ONE (11:45)
[2023-01-29] MEDS ORDERED: BUPIVACAINE-MPF 0.25% 30 ML VIAL INJ ONE (11:48)
[2023-01-29] MEDS ORDERED: HYDROmorphone PFS 2 MG/ML SYR ONE (12:01)
[2023-01-29] MEDS ORDERED: MIDAZOLAM 2 MG/2 ML VIAL ONE (12:01)
[2023-01-29] MEDS: FOAM DRESSING TP SCH (13:00)
[2023-01-29] MEDS: HYDRAGUARD CREAM TP SCH (13:00)
[2023-01-29] MEDS: NYSTATIN POW 100 MU/GM 15 GM BTL TP SCH (13:00)
[2023-01-29] MEDS ORDERED: VANCOMYCIN 1,000 MG VIAL ONE (13:07)
[2023-01-29] MEDS ORDERED: PROPOFOL 200 MG/20 ML VIAL IV ONE (14:48)
[2023-01-29] MEDS ORDERED: ROCURONIUM 50 MG/5 ML VIAL IV ONE (14:48)
[2023-01-29] MEDS: DEXT 5% / NACL 0.45% 1,000 ML IV SCH (15:43)
[2023-01-29] MEDS: LORazepam 2 MG/ML VIAL IVP PRN (15:44)
[2023-01-29] MEDS: PROPOFOL 1000 MG/100 ML PREMIX 100 ML IV PRN (15:59)
[2023-01-30] VITALS (29 sets, daily range): BP systolic 88–119; BP diastolic 54–89; PULSE 96–125; RESP 12; TEMP 96.7–99.4; O2SAT 96–100
[2023-01-30] MEDS: HYDRAGUARD CREAM TP SCH ×2 (01:00→13:07)
[2023-01-30 05:10] LABS: BASOPHILS % (AUTO) 0.3 % (0.0-2.0); EOSINOPHILS % (AUTO) 0.2 % (0.0-4.0); HEMATOCRIT 28.5 % (36-52); HEMOGLOBIN 9.2 g/dL (12.0-18.0); LYMPHOCYTES # (AUTO) 1.7 K/uL (2.0-11.5); MEAN CORPUSCULAR HEMOGLOBIN 29 pg (27-31); MEAN CORPUSCULAR HGB CONC 32 g/dL (33-37); MONOCYTES # (AUTO) 1.5 K/uL (0.8-1.0); MONOCYTES % (AUTO) 10.7 % (1.7-9.3); NEUTROPHILS # (AUTO) 10.7 K/uL (1.8-7.7); NEUTROPHILS % (AUTO) 76.8 % (42.2-75.2); PLATELET COUNT (AUTO) 373 K/uL (140-450); RED BLOOD CELL COUNT(AUTO) 3.16 MIL/uL (4.20-6.10); RED CELL DISTRIBUTION WIDTH 13.8 % (11.6-13.7); WHITE BLOOD COUNT (AUTO) 13.9 K/uL (4.8-10.8)
[2023-01-30 05:19] LABS: ANION GAP 10.8 (8-16); CALCIUM 8.6 mg/dL (8.5-10.1); CARBON DIOXIDE 25.7 mmol/L (21-32); CREATININE 0.3 mg/dL (0.6-1.3); POTASSIUM 3.5 mmol/L (3.5-5.1)
[2023-01-30] MEDS: NYSTATIN POW 100 MU/GM 15 GM BTL TP SCH ×2 (06:05→13:06)
[2023-01-30] MEDS: LEVOTHYROXINE 0.075 MG TAB GT SCH (06:06)
[2023-01-30] MEDS: BUDESONIDE 0.5 MG/2 ML NEBU INH SCH ×2 (07:10→21:36)
[2023-01-30] MEDS: ALBUTEROL SULFATE/IPRATROPIU 3 ML SOL IH PRN (07:10)
[2023-01-30] MEDS: LORazepam 2 MG/ML VIAL IVP PRN (07:49)
[2023-01-30] MEDS: BACLOFEN 10 MG TAB PO SCH ×4 (08:00→20:21)
[2023-01-30] MEDS: MONTELUKAST SODIUM 10 MG TAB PO SCH (09:40)
[2023-01-30] MEDS: AZITHROMYCIN 250 MG TAB PO SCH (09:40)
[2023-01-30] MEDS: DEXT 5% / NACL 0.45% 1,000 ML IV SCH (09:45)
[2023-01-30] MEDS: MORPHINE SULFATE 2 MG/ML SYR IVP PRN (12:10)
[2023-01-30] MEDS: FOAM DRESSING TP SCH (13:05)
[2023-01-30] MEDS: MAG SULF 2000 MG/WATER PREMIX 50 ML IV PRN (13:54)
[2023-01-30] MEDS: PROPOFOL 1000 MG/100 ML PREMIX 100 ML IV PRN ×2 (17:02→19:33)
[2023-01-31] VITALS (32 sets, daily range): BP systolic 91–136; BP diastolic 65–94; PULSE 85–119; RESP 12–28; TEMP 97.8–98.9; O2SAT 95–100
[2023-01-31] MEDS: NYSTATIN POW 100 MU/GM 15 GM BTL TP SCH ×2 (04:13→13:03)
[2023-01-31] MEDS: HYDRAGUARD CREAM TP SCH ×2 (04:14→13:01)
[2023-01-31 05:54] LABS: BASOPHILS # (AUTO) 0.1 K/uL (0.00-0.22); EOSINOPHILS # (AUTO) 0.1 K/uL (0-0.4); RED CELL DISTRIBUTION WIDTH 13.7 % (11.6-13.7)
[2023-01-31 06:06] LABS: BASOPHILS % (AUTO) 0.5 % (0.0-2.0); EOSINOPHILS % (AUTO) 0.3 % (0.0-4.0); HEMOGLOBIN 8.8 g/dL (12.0-18.0); LYMPHOCYTES # (AUTO) 2.4 K/uL (2.0-11.5); MEAN CORPUSCULAR HEMOGLOBIN 29 pg (27-31); MEAN CORPUSCULAR HGB CONC 32 g/dL (33-37); MONOCYTES # (AUTO) 1.9 K/uL (0.8-1.0); MONOCYTES % (AUTO) 12.7 % (1.7-9.3); NEUTROPHILS # (AUTO) 10.7 K/uL (1.8-7.7); NEUTROPHILS % (AUTO) 70.5 % (42.2-75.2); PLATELET COUNT (AUTO) 377 K/uL (140-450); RED BLOOD CELL COUNT(AUTO) 3.04 MIL/uL (4.20-6.10); WHITE BLOOD COUNT (AUTO) 15.2 K/uL (4.8-10.8)
[2023-01-31 06:23] LABS: ANION GAP 10.7 (8-16); CALCIUM 8.5 mg/dL (8.5-10.1); CARBON DIOXIDE 26.3 mmol/L (21-32); CREATININE 0.3 mg/dL (0.6-1.3)
[2023-01-31] MEDS: LEVOTHYROXINE 0.075 MG TAB GT SCH (06:42)
[2023-01-31] MEDS: ALBUTEROL SULFATE/IPRATROPIU 3 ML SOL IH PRN ×2 (07:18→14:09)
[2023-01-31] MEDS: BUDESONIDE 0.5 MG/2 ML NEBU INH SCH ×2 (07:18→21:37)
[2023-01-31] MEDS: BACLOFEN 10 MG TAB PO SCH ×3 (08:09→19:55)
[2023-01-31] MEDS: AZITHROMYCIN 250 MG TAB PO SCH (08:11)
[2023-01-31] MEDS: MONTELUKAST SODIUM 10 MG TAB PO SCH (08:11)
[2023-01-31] MEDS: DEXT 5% / NACL 0.45% 1,000 ML IV SCH (08:27)
[2023-01-31] MEDS: POTASSIUM CHLORIDE 20% 40 MEQ/15 ML UDC GT PRN (08:47)
[2023-01-31] MEDS: ONDANSETRON 4 MG/2 ML VIAL IVP PRN ×2 (08:48→08:53)
[2023-01-31] MEDS ORDERED: PANTOPRAZOLE 40 MG INJ VIAL IVP SCH (09:00)
[2023-01-31 10:01] LABS: BLOOD GAS BASE EXCESS 4.5 mmol/L (-2.0-2.0); BLOOD GAS HCO3 27.7 mmol/L (22-26); BLOOD GAS O2 SAT% 98.1 % (92.0-98.5); BLOOD GAS PCO2 35.7 mmHg (35-45); BLOOD GAS PH 7.507 (7.35-7.45); BLOOD GAS PO2 108.2 mmHg (75-100)
[2023-01-31] MEDS: FOAM DRESSING TP SCH (12:59)
[2023-01-31] MEDS ORDERED: FUROSEMIDE 20 MG/2 ML VIAL IVP SCH (14:00)
[2023-02-01] VITALS (36 sets, daily range): BP systolic 94–120; BP diastolic 60–87; PULSE 82–114; RESP 2–19; TEMP 96–98.9; O2SAT 96–100
[2023-02-01] MEDS: HYDRAGUARD CREAM TP SCH ×2 (01:00→13:00)
[2023-02-01] MEDS: NYSTATIN POW 100 MU/GM 15 GM BTL TP SCH ×2 (04:05→14:11)
[2023-02-01] MEDS: DEXT 5% / NACL 0.45% 1,000 ML IV SCH (04:06)
[2023-02-01 05:06] LABS: BASOPHILS % (AUTO) 0.4 % (0.0-2.0); EOSINOPHILS # (AUTO) 0.1 K/uL (0-0.4); EOSINOPHILS % (AUTO) 1.2 % (0.0-4.0); HEMOGLOBIN 8.6 g/dL (12.0-18.0); LYMPHOCYTES # (AUTO) 1.5 K/uL (2.0-11.5); LYMPHOCYTES % (AUTO) 15.8 % (20.5-51.1); MEAN CORPUSCULAR HEMOGLOBIN 29 pg (27-31); MEAN CORPUSCULAR HGB CONC 33 g/dL (33-37); MEAN CORPUSCULAR VOLUME 87.8 fL (80-94); MONOCYTES % (AUTO) 10.8 % (1.7-9.3); NEUTROPHILS % (AUTO) 71.8 % (42.2-75.2); PLATELET COUNT (AUTO) 386 K/uL (140-450); RED BLOOD CELL COUNT(AUTO) 2.96 MIL/uL (4.20-6.10); RED CELL DISTRIBUTION WIDTH 13.5 % (11.6-13.7); WHITE BLOOD COUNT (AUTO) 9.7 K/uL (4.8-10.8)
[2023-02-01 05:35] LABS: ANION GAP 10.7 (8-16); CALCIUM 8.5 mg/dL (8.5-10.1); CARBON DIOXIDE 28.6 mmol/L (21-32); CREATININE 0.3 mg/dL (0.6-1.3); POTASSIUM 3.3 mmol/L (3.5-5.1)
[2023-02-01] MEDS: LEVOTHYROXINE 0.075 MG TAB GT SCH (06:26)
[2023-02-01] MEDS: POTASSIUM CHLORIDE 20% 40 MEQ/15 ML UDC GT PRN (06:26)
[2023-02-01] MEDS: BUDESONIDE 0.5 MG/2 ML NEBU INH SCH ×2 (07:42→19:26)
[2023-02-01] MEDS ORDERED: PANTOPRAZOLE 40 MG INJ VIAL IVP SCH (09:00)
[2023-02-01] MEDS: AZITHROMYCIN 250 MG TAB PO SCH (09:45)
[2023-02-01] MEDS: MONTELUKAST SODIUM 10 MG TAB PO SCH (09:46)
[2023-02-01] MEDS: BACLOFEN 10 MG TAB PO SCH ×3 (09:46→20:18)
[2023-02-01] MEDS: PANTOPRAZOLE 40 MG INJ VIAL IVP SCH (09:51)
[2023-02-01] MEDS: NON ADHERENT DRESSING TP SCH ×2 (11:11→20:20)
[2023-02-01] MEDS: FOAM DRESSING TP SCH (13:00)
[2023-02-01] MEDS ORDERED: metroNIDAZOLE 500 MG/NS PREMIX 100 ML IV SCH (13:00)
[2023-02-01] MEDS ORDERED: DEXMEDETOMIDINE HCL 400 MCG in NACL 0.9% 96 ML IV SCH ×2 (15:00→15:20)
[2023-02-01] MEDS: FUROSEMIDE 20 MG/2 ML VIAL IVP SCH ×2 (15:21→20:18)
[2023-02-01] MEDS: DEXMEDETOMIDINE HCL 400 MCG in NACL 0.9% 96 ML IV SCH (16:39)
[2023-02-01] MEDS: ALBUTEROL SULFATE/IPRATROPIU 3 ML SOL IH PRN (19:25)
[2023-02-01] MEDS ORDERED: CEFEPIME 1,000 MG in DEXTROSE 5% 50 ML IV SCH (21:00)
[2023-02-01] MEDS ORDERED: PIPERACILLIN/TAZOBACTAM 3.375 GM VIAL IV ONE (23:36)
[2023-02-02] VITALS (35 sets, daily range): BP systolic 85–128; BP diastolic 53–83; PULSE 84–117; RESP 12–28; TEMP 96–98.7; O2SAT 96–100
[2023-02-02] MEDS: PIPERACILLIN/TAZOBACTAM 3.375 GM in DEXTROSE 5% 50 ML IV SCH ×5 (00:04→23:45)
[2023-02-02] MEDS: NYSTATIN POW 100 MU/GM 15 GM BTL TP SCH ×2 (00:05→13:26)
[2023-02-02] MEDS: HYDRAGUARD CREAM TP SCH ×2 (00:06→13:26)
[2023-02-02] MEDS: ALBUTEROL SULFATE/IPRATROPIU 3 ML SOL IH PRN (03:05)
[2023-02-02] MEDS ORDERED: PIPERACILLIN/TAZOBACTAM 3.375 GM VIAL IV ONE (05:16)
[2023-02-02] MEDS: LEVOTHYROXINE 0.075 MG TAB GT SCH (05:35)
[2023-02-02 05:57] LABS: ANION GAP 11.8 (8-16); CALCIUM 9.1 mg/dL (8.5-10.1); CARBON DIOXIDE 30.2 mmol/L (21-32); CREATININE 0.5 mg/dL (0.6-1.3)
[2023-02-02 06:20] LABS: BASOPHILS # (AUTO) 0.1 K/uL (0.00-0.22); BASOPHILS % (AUTO) 0.7 % (0.0-2.0); EOSINOPHILS % (AUTO) 0.4 % (0.0-4.0); HEMOGLOBIN 9.9 g/dL (12.0-18.0); LYMPHOCYTES # (AUTO) 1.3 K/uL (2.0-11.5); LYMPHOCYTES % (AUTO) 13.9 % (20.5-51.1); MEAN CORPUSCULAR HEMOGLOBIN 29 pg (27-31); MEAN CORPUSCULAR HGB CONC 32 g/dL (33-37); MEAN CORPUSCULAR VOLUME 89.1 fL (80-94); MONOCYTES % (AUTO) 10.5 % (1.7-9.3); NEUTROPHILS # (AUTO) 7.1 K/uL (1.8-7.7); NEUTROPHILS % (AUTO) 74.5 % (42.2-75.2); PLATELET COUNT (AUTO) 410 K/uL (140-450); RED BLOOD CELL COUNT(AUTO) 3.48 MIL/uL (4.20-6.10); RED CELL DISTRIBUTION WIDTH 13.8 % (11.6-13.7); WHITE BLOOD COUNT (AUTO) 9.5 K/uL (4.8-10.8)
[2023-02-02] MEDS: BACLOFEN 10 MG TAB PO SCH ×3 (08:21→19:55)
[2023-02-02] MEDS: POTASSIUM CHLORIDE 20% 40 MEQ/15 ML UDC GT PRN (08:22)
[2023-02-02] MEDS: MONTELUKAST SODIUM 10 MG TAB PO SCH (08:22)
[2023-02-02] MEDS: PANTOPRAZOLE 40 MG INJ VIAL IVP SCH (08:24)
[2023-02-02] MEDS: ENOXAPARIN 40 MG/0.4 ML SYR SUBQ SCH (08:27)
[2023-02-02] MEDS: BUDESONIDE 0.5 MG/2 ML NEBU INH SCH ×2 (08:30→21:34)
[2023-02-02] MEDS ORDERED: KCL 20 MEQ IN 100 mL PREMIX 100 ML IV SCH (09:00)
[2023-02-02] MEDS: NON ADHERENT DRESSING TP SCH ×2 (09:00→21:27)
[2023-02-02] MEDS: FUROSEMIDE 20 MG/2 ML VIAL IVP SCH ×2 (09:11→20:58)
[2023-02-02] MEDS: FOAM DRESSING TP SCH (13:27)
[2023-02-03] VITALS (34 sets, daily range): BP systolic 96–126; BP diastolic 55–89; PULSE 87–119; RESP 12–30; TEMP 97.4–98.4; O2SAT 96–100
[2023-02-03] MEDS: HYDRAGUARD CREAM TP SCH ×2 (01:35→12:17)
[2023-02-03] MEDS: NYSTATIN POW 100 MU/GM 15 GM BTL TP SCH ×2 (01:35→12:17)
[2023-02-03] MEDS ORDERED: DEXMEDETOMIDINE HCL 100 MCG/ML 2 ML VIAL IV ONE (02:47)
[2023-02-03] MEDS: DEXMEDETOMIDINE HCL 400 MCG in NACL 0.9% 96 ML IV SCH (03:03)
[2023-02-03] MEDS: PIPERACILLIN/TAZOBACTAM 3.375 GM in DEXTROSE 5% 50 ML IV SCH ×3 (05:23→17:16)
[2023-02-03 06:06] LABS: BASOPHILS # (AUTO) 0.1 K/uL (0.00-0.22); BASOPHILS % (AUTO) 1.5 % (0.0-2.0); EOSINOPHILS # (AUTO) 0.1 K/uL (0-0.4); EOSINOPHILS % (AUTO) 1.3 % (0.0-4.0); HEMOGLOBIN 9.2 g/dL (12.0-18.0); LYMPHOCYTES # (AUTO) 1.3 K/uL (2.0-11.5); LYMPHOCYTES % (AUTO) 13.9 % (20.5-51.1); MEAN CORPUSCULAR HEMOGLOBIN 29 pg (27-31); MEAN CORPUSCULAR HGB CONC 33 g/dL (33-37); MEAN CORPUSCULAR VOLUME 88.4 fL (80-94); MONOCYTES # (AUTO) 0.8 K/uL (0.8-1.0); MONOCYTES % (AUTO) 9.3 % (1.7-9.3); NEUTROPHILS # (AUTO) 6.7 K/uL (1.8-7.7); PLATELET COUNT (AUTO) 437 K/uL (140-450); RED BLOOD CELL COUNT(AUTO) 3.17 MIL/uL (4.20-6.10)
[2023-02-03 06:12] LABS: ANION GAP 8.3 (8-16); CALCIUM 9.3 mg/dL (8.5-10.1); CARBON DIOXIDE 33.7 mmol/L (21-32); CREATININE 0.5 mg/dL (0.6-1.3)
[2023-02-03] MEDS: LEVOTHYROXINE 0.075 MG TAB GT SCH (06:24)
[2023-02-03] MEDS: ALBUTEROL SULFATE/IPRATROPIU 3 ML SOL IH PRN ×2 (07:11→19:19)
[2023-02-03] MEDS: BUDESONIDE 0.5 MG/2 ML NEBU INH SCH ×2 (07:24→19:19)
[2023-02-03] MEDS: BACLOFEN 10 MG TAB PO SCH ×3 (07:50→20:51)
[2023-02-03] MEDS: PANTOPRAZOLE 40 MG INJ VIAL IVP SCH (08:52)
[2023-02-03] MEDS: FUROSEMIDE 20 MG/2 ML VIAL IVP SCH ×2 (08:53→20:51)
[2023-02-03] MEDS: ENOXAPARIN 40 MG/0.4 ML SYR SUBQ SCH (08:58)
[2023-02-03] MEDS: MONTELUKAST SODIUM 10 MG TAB PO SCH (09:00)
[2023-02-03] MEDS: NON ADHERENT DRESSING TP SCH ×2 (09:13→20:53)
[2023-02-03] MEDS: FOAM DRESSING TP SCH (12:17)
[2023-02-03 13:18] LABS: BLOOD GAS PCO2 40.1 mmHg (35-45); BLOOD GAS PH 7.517 (7.35-7.45)
[2023-02-03 13:19] LABS: BLOOD GAS BASE EXCESS 8.2 mmol/L (-2.0-2.0); BLOOD GAS HCO3 31.8 mmol/L (22-26); BLOOD GAS O2 SAT% 97.8 % (92.0-98.5); BLOOD GAS PO2 105.5 mmHg (75-100)
[2023-02-03] MEDS ORDERED: POTASSIUM IODIDE 30 GM/30 ML BTL PEG ONE (14:10)
[2023-02-03] MEDS: POTASSIUM CHLORIDE 20% 40 MEQ/15 ML UDC GT PRN ×2 (14:46→14:52)
[2023-02-03] MEDS: MAG SULF 2000 MG/WATER PREMIX 50 ML IV PRN (14:46)
[2023-02-03] MEDS ORDERED: POTASSIUM CHLORIDE 20% 40 MEQ/15 ML UDC GT SCH (15:00)
[2023-02-03] MEDS ORDERED: RACEPINEPHRINE 2.25% 13.5 MG/0.5 ML NEBU INH PRN (15:20)
[2023-02-03] MEDS ORDERED: methylPREDNISolone SS 125 MG/2 ML VIAL IVP SCH (16:00)
[2023-02-04] VITALS (15 sets, daily range): BP systolic 89–119; BP diastolic 55–83; PULSE 88–120; RESP 18–32; TEMP 97–98.1; O2SAT 93–100
[2023-02-04] MEDS: PIPERACILLIN/TAZOBACTAM 3.375 GM in DEXTROSE 5% 50 ML IV SCH ×4 (00:55→17:06)
[2023-02-04] MEDS: HYDRAGUARD CREAM TP SCH ×2 (00:55→13:00)
[2023-02-04] MEDS: NYSTATIN POW 100 MU/GM 15 GM BTL TP SCH ×2 (00:56→14:50)
[2023-02-04 05:33] LABS: BASOPHILS # (AUTO) 0.1 K/uL (0.00-0.22); BASOPHILS % (AUTO) 0.4 % (0.0-2.0); EOSINOPHILS % (AUTO) 0.1 % (0.0-4.0); HEMATOCRIT 30.6 % (36-52); HEMOGLOBIN 9.8 g/dL (12.0-18.0); LYMPHOCYTES # (AUTO) 2.7 K/uL (2.0-11.5); LYMPHOCYTES % (AUTO) 20.9 % (20.5-51.1); MEAN CORPUSCULAR HEMOGLOBIN 29 pg (27-31); MEAN CORPUSCULAR HGB CONC 32 g/dL (33-37); MEAN CORPUSCULAR VOLUME 90.2 fL (80-94); MONOCYTES # (AUTO) 1.6 K/uL (0.8-1.0); NEUTROPHILS # (AUTO) 8.6 K/uL (1.8-7.7); NEUTROPHILS % (AUTO) 66.6 % (42.2-75.2); PLATELET COUNT (AUTO) 524 K/uL (140-450); RED CELL DISTRIBUTION WIDTH 14.2 % (11.6-13.7)
[2023-02-04 05:45] LABS: ANION GAP 8.1 (8-16); CALCIUM 9.7 mg/dL (8.5-10.1); CARBON DIOXIDE 33.6 mmol/L (21-32); CREATININE 0.5 mg/dL (0.6-1.3); POTASSIUM 3.7 mmol/L (3.5-5.1)
[2023-02-04] MEDS: LEVOTHYROXINE 0.075 MG TAB GT SCH (06:44)
[2023-02-04] MEDS: BUDESONIDE 0.5 MG/2 ML NEBU INH SCH ×2 (07:35→19:20)
[2023-02-04] MEDS: BACLOFEN 10 MG TAB PO SCH ×3 (08:58→20:45)
[2023-02-04] MEDS: NON ADHERENT DRESSING TP SCH ×2 (09:00→21:00)
[2023-02-04] MEDS: MONTELUKAST SODIUM 10 MG TAB PO SCH (09:10)
[2023-02-04] MEDS: PANTOPRAZOLE 40 MG INJ VIAL IVP SCH (09:10)
[2023-02-04] MEDS: FUROSEMIDE 20 MG/2 ML VIAL IVP SCH (09:11)
[2023-02-04] MEDS: ENOXAPARIN 40 MG/0.4 ML SYR SUBQ SCH (09:12)
[2023-02-04] MEDS ORDERED: ZOLPIDEM 5 MG TAB PO PRN (12:10)
[2023-02-04] MEDS: FOAM DRESSING TP SCH (13:00)
[2023-02-05] MEDS: PIPERACILLIN/TAZOBACTAM 3.375 GM in DEXTROSE 5% 50 ML IV SCH ×2 (00:02→06:22)
[2023-02-05] MEDS: NYSTATIN POW 100 MU/GM 15 GM BTL TP SCH ×2 (01:59→13:42)
[2023-02-05] MEDS: HYDRAGUARD CREAM TP SCH ×2 (02:00→13:42)
[2023-02-05 04:00] VITALS: BP 124/89; PULSE 112; RESP 18; TEMP 98.8; O2SAT 93
[2023-02-05 05:32] LABS: BASOPHILS # (AUTO) 0.1 K/uL (0.00-0.22); BASOPHILS % (AUTO) 0.6 % (0.0-2.0); EOSINOPHILS # (AUTO) 0.1 K/uL (0-0.4); EOSINOPHILS % (AUTO) 0.6 % (0.0-4.0); HEMOGLOBIN 10.1 g/dL (12.0-18.0); LYMPHOCYTES # (AUTO) 1.8 K/uL (2.0-11.5); LYMPHOCYTES % (AUTO) 17.9 % (20.5-51.1); MEAN CORPUSCULAR HEMOGLOBIN 29 pg (27-31); MEAN CORPUSCULAR HGB CONC 33 g/dL (33-37); MEAN CORPUSCULAR VOLUME 89.6 fL (80-94); MONOCYTES # (AUTO) 0.9 K/uL (0.8-1.0); MONOCYTES % (AUTO) 8.9 % (1.7-9.3); NEUTROPHILS # (AUTO) 7.1 K/uL (1.8-7.7); PLATELET COUNT (AUTO) 518 K/uL (140-450); RED BLOOD CELL COUNT(AUTO) 3.46 MIL/uL (4.20-6.10); RED CELL DISTRIBUTION WIDTH 14.8 % (11.6-13.7); WHITE BLOOD COUNT (AUTO) 9.9 K/uL (4.8-10.8)
[2023-02-05 06:17] LABS: ANION GAP 7.7 (8-16); CARBON DIOXIDE 36.6 mmol/L (21-32); CREATININE 0.5 mg/dL (0.6-1.3); POTASSIUM 3.3 mmol/L (3.5-5.1)
[2023-02-05] MEDS: LEVOTHYROXINE 0.075 MG TAB GT SCH (06:21)
[2023-02-05] MEDS: ALBUTEROL SULFATE/IPRATROPIU 3 ML SOL IH PRN (07:25)
[2023-02-05 07:26] VITALS: PULSE 104; RESP 22; O2SAT 97
[2023-02-05] MEDS: BUDESONIDE 0.5 MG/2 ML NEBU INH SCH (07:26)
[2023-02-05 07:33] VITALS: PULSE 109; RESP 24; O2SAT 100
[2023-02-05 08:00] VITALS: BP 104/68; PULSE 118; RESP 18; TEMP 99.1; O2SAT 98
[2023-02-05] MEDS ORDERED: ACET-8905 PO (08:42)
[2023-02-05] MEDS: NON ADHERENT DRESSING TP SCH (09:14)
[2023-02-05] MEDS: BACLOFEN 10 MG TAB PO SCH ×2 (09:15→15:31)
[2023-02-05] MEDS: MONTELUKAST SODIUM 10 MG TAB PO SCH (09:15)
[2023-02-05] MEDS: POTASSIUM CHLORIDE 20% 40 MEQ/15 ML UDC GT PRN (09:18)
[2023-02-05] MEDS: ENOXAPARIN 40 MG/0.4 ML SYR SUBQ SCH (09:19)
[2023-02-05] MEDS: PANTOPRAZOLE 40 MG INJ VIAL IVP SCH (10:33)
[2023-02-05] MEDS ORDERED: PIPERACILLIN/TAZOBACTAM 3.375 GM in DEXTROSE 5% 50 ML IV SCH (12:00)
[2023-02-05] MEDS: FOAM DRESSING TP SCH (13:41)
[2023-02-05 16:00] VITALS: BP 104/69; PULSE 115; RESP 18; TEMP 100.2; O2SAT 99
[2023-02-05] MEDS: ACETAMINOPHEN 325 MG TAB PO PRN (16:35)
[2023-02-05] MEDS ORDERED: MEROPENEM 500 MG in NACL 0.9% 50 ML IV SCH (21:00)
== END 2023-02-05 18:45 | DRG 480 ==
LOC: MED 14:49 → MTU 17:06 → MIC 01-29 15:30 → MTU 02-04 16:40
PROVIDERS: ADMIT General Practice; ATTEND General Practice
PROC: 5A1955Z Respiratory Ventilation, Greater than 96 Consecutive Hours (ICD-10-PCS; 2023-01-29)
PROC: 0BH17EZ Insertion of Endotracheal Airway into Trachea, Via Natural or Artificial Opening (ICD-10-PCS; 2023-01-29)
PROC: 0QS604Z Reposition Right Upper Femur with Internal Fixation Device, Open Approach (ICD-10-PCS; principal; 2023-01-29 11:30)
DX: S72.21XA Displaced subtrochanteric fracture of right femur, initial encounter for closed fracture (principal); G82.50 Quadriplegia, unspecified; J15.1 Pneumonia due to Pseudomonas; J69.0 Pneumonitis due to inhalation of food and vomit; J96.21 Acute and chronic respiratory failure with hypoxia; E44.0 Moderate protein-calorie malnutrition; Q24.0 Dextrocardia; Z68.1 Body mass index [BMI] 19.9 or less, adult; R65.10 Systemic inflammatory response syndrome (SIRS) of non-infectious origin without acute organ dysfunction; J90 Pleural effusion, not elsewhere classified; R13.10 Dysphagia, unspecified; K21.9 Gastro-esophageal reflux disease without esophagitis; J45.909 Unspecified asthma, uncomplicated; G40.909 Epilepsy, unspecified, not intractable, without status epilepticus; W18.39XA Other fall on same level, initial encounter; E03.9 Hypothyroidism, unspecified; Z88.8 Allergy status to other drugs, medicaments and biological substances; Z79.899 Other long term (current) drug therapy; Z74.01 Bed confinement status; Z88.1 Allergy status to other antibiotic agents; Z93.1 Gastrostomy status; Y93.89 Activity, other specified; Y92.89 Other specified places as the place of occurrence of the external cause; Y99.8 Other external cause status
CPT/HCPCS: 36415; 36600; 71045; 71250; 73502; 76604; 80048; 80053; 82803; 82948; 83036; 83735; 85025; 85610; 85730; 87040; 87070; 87081; 87205; 94002; 94003; 94640; 96365; 96375; 99285; C9113; J0690; J0692; J0696; J1170; J1644; J1650; J1940; J2001; J2060; J2185; J2250; J2270; J2405; J2543; J2704; J2930; J3370; J3475; J3480; J3490; J7030; J7060; J7626; Q0092